=== PATIENT | male | born 1970 | race Hispanic/Latino ===

== ENCOUNTER 2017-03-27 08:13 | Emergency (ER) | payer MEDICAID ==
[2017-03-27 08:13] VITALS: BMI 33.4
[2017-03-27 08:28] VITALS: BP 129/90; PULSE 78; RESP 16; TEMP 98.1; O2SAT 95
--- NOTE | 2017-03-27 08:43 | ED PDOC ---
Arrival/HPI - General Chief Complaint: Upper Extremity Problem/Injury Time Seen by Provider: 03/27/17 08:16 Historian: Patient - History of Present Illness Narrative History of Present Illness (Text): 03/27/17 08:30 A 46 year old male, with no significant past medical history, presents to the emergency department complaining of finger problem for 3 weeks. Patient states while he was working, "his ring got caught on a screw". The ring split apart and was taken off immediately afterwards. Patient mentions superficial abrasion with some bleeding around ring at the time, bleeding controlled and he did not seek evaluation. He reports that he had some swelling immediately after incident distal to where his ring was, states that "I was briefly hung up on my ring" for "a few seconds". Also, patient mentions finger hurts when squeezed but is actively bend finger. Patient has no other complaints. Denies numbness or weakness. PMD: Dr. Barry Time/Duration: < week (3 weeks) Symptom Onset: Sudden Symptom Course: Unchanged Past Medical History - Provider Review Nursing Documentation Reviewed: Yes - Infectious Disease Hx of Infectious Diseases: None - Cardiac Hx Cardiac Disorders: No - Pulmonary Hx Respiratory Disorders: Yes Hx Asthma: Yes - Neurological Hx Neurological Disorder: No - HEENT Hx HEENT Disorder: Yes Other/Comment: nasalpharyngeal mass benign - Renal Hx Renal Disorder: No - Endocrine/Metabolic Hx Endocrine Disorders: No - Hematological/Oncological Hx Blood Disorders: No - Integumentary Hx Dermatological Disorder: No - Musculoskeletal/Rheumatological Hx Musculoskeletal Disorders: Yes Hx Arthritis: Yes - Gastrointestinal Hx Gastrointestinal Disorders: No - Genitourinary/Gynecological Hx Genitourinary Disorders: No - Psychiatric Hx Psychophysiologic Disorder: Yes Hx Anxiety: Yes Hx Substance Use: No - Surgical History Hx Musculoskeletal Surgery: Yes Other/Comment: acl , right arthroscopy for knee - Anesthesia Hx Anesthesia: Yes Hx Anesthesia Reactions: No Hx Malignant Hyperthermia: No - Suicidal Assessment Feels Threatened In Home Enviroment: No Family/Social History - Physician Review Nursing Documentation Reviewed: Yes Family/Social History: No Known Family HX Smoking Status: Heavy Smoker > 10 Cigarettes Daily Hx Alcohol Use: No Hx Substance Use: No Allergies/Home Meds Allergies/Adverse Reactions: Allergies shellfish derived Allergy (Verified 03/27/17 08:28) SWELLING Home Medications: Home Meds Medication Instructions Recorded Confirmed No Known Home Med 03/27/17 03/27/17 Review of Systems - Review of Systems Constitutional: absent: Fevers Cardiovascular: absent: Chest Pain Gastrointestinal: absent: Abdominal Pain Musculoskeletal: Joint Swelling (slightly swollen finger of the left hand (4th digit)) Skin: Other (scar on left hand (4th digit) where laceration was made 3 weeks ago ). absent: Rash, Laceration, Abscess Neurological: absent: Focal Weakness Physical Exam Vital Signs Reviewed: Yes Vital Signs Temp Pulse Resp BP Pulse Ox 03/27/17 08:28 98.1 F 78 16 129/90 95 Temperature: Afebrile Appearance: Positive for: Well-Appearing, Non-Toxic, Comfortable Pain Distress: None - Systems Exam Head: Present: Atraumatic Respiratory/Chest: No: Respiratory Distress Upper Extremity: Present: Normal ROM, NORMAL PULSES, Neurovascularly Intact, Other (patient with very mild soft tissue swelling noted at left fourth mcp joint with no fluctuance, no streaking, no erythema, no pus or drainage, no PIP or DIP pain, median/radial/ulnar motor and sensory function intact, distal pulses intact, no foreing body palpated, no wrist pain, full range of motion at mcp, pip, dip joint, no ligamentous laxity noted). No: Erythema Neurological: Present: Motor Func Grossly Intact, Normal Sensory Function Skin: Present: Warm Psychiatric: Present: Alert Medical Decision Making ED Course and Treatment: 03/27/17 08:36 Impression: 46 year old male with finger problem. Plan: -- Left Hand (4th Digit) X-Ray -- Reassess and disposition Prior Visits: Notes and results from previous visits were reviewed. Patient was last seen in the emergency department on 07/17/2016 for wound check and finger numbness; patient was discharged home. Patient was seen again on 07/26/2016 for suture removal from left 2nd finger; patient was discharged home. Progress Notes: Patient is noted to have no signs of cellulitis or neurovascular deficits on exam. Patient injury THREE weeks ago by my history. He has full range of motion with no significant laxity noted. Suspect soft tissue/ligamentous injury. Stressed follow-up with ortho, monitoring swelling and symptoms. As nv intact with no fracture or cellulitis, will discharge home with follow-up. 03/27/2017 08:58 Left Hand X-ray read and interpreted by me, which shows no fracture, no dislocation, no foreign body. - RAD Interpretation Radiology Orders: 03/27/17 08:35 HAND LEFT 4TH DIGIT (FINGER) [RAD] Stat - Scribe Statement The provider has reviewed the documentation as recorded by the Evangelista Hermosillo Provider Scribe Attestation: All medical record entries made by the Scribe were at my direction and personally dictated by me. I have reviewed the chart and agree that the record accurately reflects my personal performance of the history, physical exam, medical decision making, and the department course for this patient. I have also personally directed, reviewed, and agree with the discharge instructions and disposition. Disposition/Present on Arrival - Present on Arrival Any Indicators Present on Arrival: No History of DVT/PE: No History of Uncontrolled Diabetes: No Urinary Catheter: No History of Decub. Ulcer: No History Surgical Site Infection Following: None - Disposition Have Diagnosis and Disposition been Completed?: Yes Diagnosis: Finger sprain Disposition: HOME/ ROUTINE Disposition Time: 08:45 Patient Plan: Discharge Condition: GOOD Discharge Instructions (ExitCare): Finger Sprain (ED) Additional Instructions: For any redness, any pus or drainage, any numbness or weakness, any difficulty with movement, any persistent swelling, any worsening of swelling, any discoloration, get rechecked immediately. Follow-up with your primary care doctor or hand specialist as directed. Thank you for allowing the [facility] team to be part of your care today. If you had an X-Ray or CT scan: A Radiologist will review the ED reading if any change in treatment is needed we will contact you. Referrals: Ailin Barry MD [Primary Care Provider] - Follow up with primary [facility] [Outside] - Follow up with primary [facility] [Outside] - Follow up with primary Forms: [employer] (Kyrgyz)
--- NOTE | 2017-03-27 12:55 | RAD ---
PROCEDURE: Left ring finger radiographs. HISTORY: fourth finger pain COMPARISON: None. TECHNIQUE: PA radiograph of the left hand, as well as spot oblique and lateral images of left ring finger were obtained. FINDINGS: LEFT RING FINGER: Left ring finger normal, without fracture of focal lesion. Remainder of the left hand (as seen on the PA view) is grossly unremarkable. JOINTS: Normal. SOFT TISSUES: Normal. OTHER FINDINGS: None. IMPRESSION: No the evidence of acute displaced fracture nor dislocation.
== END 2017-03-27 09:04 | disposition home or self-care (01) ==
LOC: ED 08:13
DX: S63.615A Unspecified sprain of left ring finger, initial encounter (principal); W23.0XXA Caught, crushed, jammed, or pinched between moving objects, initial encounter; Y93.89 Activity, other specified; Y92.89 Other specified places as the place of occurrence of the external cause; Y99.8 Other external cause status

== ENCOUNTER 2017-03-28 10:56 | Emergency (ER) | payer MEDICAID ==
[2017-03-28 10:57] VITALS: BMI 33.4
[2017-03-28 11:59] VITALS: TEMP 99.2
--- NOTE | 2017-03-28 13:02 | ED PDOC ---
Arrival/HPI - General Chief Complaint: Upper Extremity Problem/Injury Time Seen by Provider: 03/28/17 12:18 Historian: Patient - History of Present Illness Narrative History of Present Illness (Text): 03/28/17 12:20 Lázaro Don is a 46 year old male who presents to the emergency department complaining of left hand injury after large wooden pieces landed on his left hand that was on the steering wheel while using a [employer] machine prior to arrival. Patient describes his pain as a throbbing pain that is 8/10, greatest to the fourth finger and fourth metacarpal on the left hand. Patient also complains of pain with flexion of his hand. He notes that he has not taken any medications for pain. Patient denies any numbness, weakness, tingling, or any other complaints at this time. Time/Duration: Prior to Arrival Symptom Onset: Sudden Symptom Course: Unchanged Severity Level: 8 Context: Work Past Medical History - Provider Review Nursing Documentation Reviewed: Yes - Infectious Disease Hx of Infectious Diseases: None - Cardiac Hx Cardiac Disorders: No - Pulmonary Hx Respiratory Disorders: Yes Hx Asthma: Yes - Neurological Hx Neurological Disorder: No - HEENT Hx HEENT Disorder: Yes Other/Comment: nasalpharyngeal mass benign - Renal Hx Renal Disorder: No - Endocrine/Metabolic Hx Endocrine Disorders: No - Hematological/Oncological Hx Blood Disorders: No - Integumentary Hx Dermatological Disorder: No - Musculoskeletal/Rheumatological Hx Musculoskeletal Disorders: Yes Hx Arthritis: Yes - Gastrointestinal Hx Gastrointestinal Disorders: No - Genitourinary/Gynecological Hx Genitourinary Disorders: No - Psychiatric Hx Psychophysiologic Disorder: Yes Hx Anxiety: Yes Hx Substance Use: No - Surgical History Hx Musculoskeletal Surgery: Yes Other/Comment: acl , right arthroscopy for knee - Anesthesia Hx Anesthesia: Yes Hx Anesthesia Reactions: No Hx Malignant Hyperthermia: No - Suicidal Assessment Feels Threatened In Home Enviroment: No Family/Social History - Physician Review Nursing Documentation Reviewed: Yes Family/Social History: No Known Family HX Smoking Status: Heavy Smoker > 10 Cigarettes Daily Hx Alcohol Use: No Hx Substance Use: No Allergies/Home Meds Allergies/Adverse Reactions: Allergies shellfish derived Allergy (Verified 03/28/17 11:59) SWELLING Review of Systems - Physician Review All systems were reviewed & negative as marked: Yes - Review of Systems Constitutional: absent: Fevers Eyes: absent: Vision Changes ENT: absent: Hearing Changes Respiratory: absent: SOB Cardiovascular: absent: Chest Pain Gastrointestinal: absent: Abdominal Pain Genitourinary Male: absent: Dysuria, Frequency Musculoskeletal: Other (left hand injury) Skin: absent: Rash Neurological: absent: Headache Endocrine: absent: Diaphoresis Hemo/Lymphatic: absent: Adenopathy Physical Exam Vital Signs Reviewed: Yes Vital Signs Temp Pulse Resp BP Pulse Ox 03/28/17 14:00 90 18 129/80 96 03/28/17 11:56 99.2 F 92 H 16 137/93 H 97 Temperature: Afebrile Blood Pressure: Hypertensive Pulse: Tachycardic Respiratory Rate: Normal Appearance: Positive for: Well-Appearing, Non-Toxic, Comfortable Pain Distress: None Mental Status: Positive for: Alert and Oriented X 3 - Systems Exam Head: Present: Atraumatic, Normocephalic Mouth: Present: Moist Mucous Membranes Neck: Present: Normal Range of Motion Respiratory/Chest: Present: Clear to Auscultation, Good Air Exchange. No: Respiratory Distress, Accessory Muscle Use Cardiovascular: Present: Regular Rate and Rhythm, Normal S1, S2. No: Murmurs Upper Extremity: Present: NORMAL PULSES (distal pulses intact), Tenderness ( Left Hand: +tenderness and swelling noted over dorsal aspect of 4th metacarpal head and 4th proximal phalanx), Neurovascularly Intact, Capillary Refill < 2s, Other (decreased flexion of 4th finger; no erythema). No: Normal ROM, Erythema , Temperature Abnormalties, Deformity Lower Extremity: Present: Normal Inspection. No: Edema Neurological: Present: GCS=15, Speech Normal Skin: Present: Warm, Dry, Normal Color. No: Rashes Psychiatric: Present: Alert, Oriented x 3 Medical Decision Making ED Course and Treatment: 03/28/17 13:56 Patient nontoxic well-appearing in no distress with stable vital signs X-rays of the left hand; no fracture toradol IM Patient placed in finger splint applied to left fourth finger. I discussed all results with patient advised to followup with the orthopedist for the next 2 days. Return if symptoms worsen persist or new symptoms develop Patient verbalizes understanding of discharge instructions and need for immediate followup. Impression: Hand pain, contusion finger Motrin every 6 hours as needed for pain Use finger splint Followup with the orthopedist within the next 2 days Followup with primary care physician within the next 2 days Return if any other concerning symptoms develop - RAD Interpretation Radiology Orders: 03/28/17 12:48 HAND LEFT 3 VIEWS ROUTINE [RAD] Stat - Medication Orders Current Medication Orders: Discontinued Medications Ketorolac Tromethamine (Toradol) 60 mg IM STAT STA Stop: 03/28/17 12:49 Last Admin: 03/28/17 13:13 Dose: 60 mg Re-Assess: NEAL Pain Assessment Document 03/28/17 14:13 IAIN (Rec: 03/28/17 14:26 IAIN [id number]) Pain Reassessment Is this a pain reassessment? No - Scribe Statement The provider has reviewed the documentation as recorded by the Danicaibchris Dunlap Provider Scribe Attestation: All medical record entries made by the Scribe were at my direction and personally dictated by me. I have reviewed the chart and agree that the record accurately reflects my personal performance of the history, physical exam, medical decision making, and the department course for this patient. I have also personally directed, reviewed, and agree with the discharge instructions and disposition. Disposition/Present on Arrival - Present on Arrival Any Indicators Present on Arrival: No History of DVT/PE: No History of Uncontrolled Diabetes: No Urinary Catheter: No History of Decub. Ulcer: No History Surgical Site Infection Following: None - Disposition Have Diagnosis and Disposition been Completed?: Yes Diagnosis: Hand pain, Contusion, finger Disposition: HOME/ ROUTINE Disposition Time: 13:58 Patient Plan: Discharge Condition: GOOD Discharge Instructions (ExitCare): Arthralgia (ED) Additional Instructions: Motrin every 6 hours as needed for pain Use finger splint Followup with the orthopedist within the next 2 days Followup with primary care physician within the next 2 days Return if any other concerning symptoms develop Prescriptions: Ibuprofen [Motrin] 600 mg PO Q6H PRN #20 tab PRN Reason: pain/fever reduction Referrals: Moi Gallagher MD [Staff Provider] - Follow up with primary Carrillo William MD [Staff Provider] - Follow up with primary Forms: [employer] (Canadian), WORK NOTE
--- NOTE | 2017-03-28 13:12 | RAD ---
PROCEDURE: Left Hand Radiographs. HISTORY: left hand injury attn; 4th finger COMPARISON: None. FINDINGS: BONES: Normal. No fracture. JOINTS: Normal. No osteoarthritic changes. SOFT TISSUES: Normal. OTHER FINDINGS: None. IMPRESSION: Normal left hand radiographs.
[2017-03-28 14:28] VITALS: BP 129/80; PULSE 90; RESP 18; O2SAT 96
== END 2017-03-28 14:29 | disposition home or self-care (01) ==
LOC: ED 10:56
DX: S60.042A Contusion of left ring finger without damage to nail, initial encounter (principal); W22.8XXA Striking against or struck by other objects, initial encounter; Y93.89 Activity, other specified; Y92.89 Other specified places as the place of occurrence of the external cause; M79.642 Pain in left hand
CPT/HCPCS: 29130; 73130; 96372; 99282; J1885

== ENCOUNTER 2018-02-13 18:14 | Emergency (ER) | payer MEDICAID ==
[2018-02-13 18:15] VITALS: BMI 33.4
--- NOTE | 2018-02-13 19:32 | ED PDOC ---
"Arrival/HPI - General Chief Complaint: Abdominal Pain Time Seen by Provider: 02/13/18 18:26 Historian: Patient - History of Present Illness Narrative History of Present Illness (Text): 02/13/18 19:05 47yo male with pmhx of hypertension who present with complaint of pelvic pain that radiates to his groin area x months. States he decided to come to ED today , because his wanted him to come. He denies nausea, vomiting, diarrhea, constipation, hematuria, dysuria, urinary frequency, fever, chills, back pain, any other complaint. Past Medical History - Provider Review Nursing Documentation Reviewed: Yes - Infectious Disease Hx of Infectious Diseases: None - Cardiac Hx Cardiac Disorders: Yes Hx Hypertension: Yes - Pulmonary Hx Respiratory Disorders: Yes Hx Asthma: Yes - Neurological Hx Neurological Disorder: No - HEENT Hx HEENT Disorder: Yes Other/Comment: nasalpharyngeal mass benign - Renal Hx Renal Disorder: No - Endocrine/Metabolic Hx Endocrine Disorders: No - Hematological/Oncological Hx Blood Disorders: No - Integumentary Hx Dermatological Disorder: No - Musculoskeletal/Rheumatological Hx Musculoskeletal Disorders: Yes Hx Arthritis: Yes - Gastrointestinal Hx Gastrointestinal Disorders: No - Genitourinary/Gynecological Hx Genitourinary Disorders: No - Psychiatric Hx Psychophysiologic Disorder: Yes Hx Anxiety: Yes Hx Substance Use: No - Surgical History Hx Musculoskeletal Surgery: Yes Other/Comment: acl , right arthroscopy for knee - Anesthesia Hx Anesthesia: Yes Hx Anesthesia Reactions: No Hx Malignant Hyperthermia: No - Suicidal Assessment Feels Threatened In Home Enviroment: No Family/Social History - Physician Review Nursing Documentation Reviewed: Yes Family/Social History: Unknown Family HX Smoking Status: Heavy Smoker > 10 Cigarettes Daily Hx Alcohol Use: No Hx Substance Use: No Allergies/Home Meds Allergies/Adverse Reactions: Allergies shellfish derived Allergy (Verified 03/28/17 11:59) SWELLING Review of Systems - Physician Review All systems were reviewed & negative as marked: Yes - Review of Systems Constitutional: Normal Eyes: Normal ENT: Normal Respiratory: Normal Cardiovascular: Normal Gastrointestinal: Abdominal Pain. absent: Constipation, Diarrhea, Nausea, Vomiting, Hematochezia, Hematemesis Genitourinary Male: Normal Musculoskeletal: Normal Skin: Normal Neurological: Normal Endocrine: Normal Hemo/Lymphatic: Normal Psychiatric: Normal Physical Exam Vital Signs Reviewed: Yes Vital Signs Temp Pulse Resp BP Pulse Ox 02/13/18 20:22 98.9 F 89 17 120/78 98 02/13/18 18:22 99.5 F 92 H 18 118/76 96 Temperature: Afebrile Blood Pressure: Normal Pulse: Regular Respiratory Rate: Normal Appearance: Positive for: Well-Appearing, Non-Toxic, Comfortable Pain Distress: None Mental Status: Positive for: Alert and Oriented X 3 - Systems Exam Head: Present: Atraumatic, Normocephalic Pupils: Present: PERRL Extroacular Muscles: Present: EOMI Conjunctiva: Present: Normal Mouth: Present: Moist Mucous Membranes Neck: Present: Normal Range of Motion Respiratory/Chest: Present: Clear to Auscultation, Good Air Exchange. No: Respiratory Distress, Accessory Muscle Use Cardiovascular: Present: Regular Rate and Rhythm, Normal S1, S2. No: Murmurs Abdomen: Present: Other (Soft). No: Tenderness, Distention, Peritoneal Signs, Rebound, Guarding, McBurney's Point Tender, Rovsing's Sign Present Back: Present: Normal Inspection Upper Extremity: Present: Normal Inspection. No: Cyanosis, Edema Lower Extremity: Present: Normal Inspection. No: Edema Neurological: Present: GCS=15, CN II-XII Intact, Speech Normal Skin: Present: Warm, Dry, Normal Color. No: Rashes Psychiatric: Present: Alert, Oriented x 3, Normal Insight, Normal Concentration Medical Decision Making ED Course and Treatment: 02/13/18 19:56 FINDINGS: Limitations: Limited evaluation due to lack of IV contrast. Lung bases: Unremarkable. No mass. No consolidation. ABDOMEN: Liver: Fatty infiltration of the liver. Gallbladder and bile ducts: Unremarkable. No calcified stones. No ductal dilation. Pancreas: Pancreas evaluation is limited. No ductal dilation. Spleen: Unremarkable. No splenomegaly. Adrenals: Unremarkable. No mass. Kidneys and ureters: Unremarkable. No obstructing stones. No hydronephrosis. Stomach and bowel: Bowel evaluation is limited due to lack of distention. No mucosal thickening. PELVIS: Appendix: No findings to suggest acute appendicitis. Bladder: The bladder is collapsed. There is wall thickening. Possible cystitis is not excluded. Consider ultrasound followup. DESMOND ABARCA | Preliminary Radiology Report DIRECTOR OF PERSONNEL (QA) DISCREPANCY? If there is a discrepancy between the preliminary and final interpretation, please notify [facility] via [email or web address]. If you do not have access to our QA portal, call our QA team at [phone] CONFIDENTIALITY STATEMENT This report is intended only for the use of the referring physician, and only in accordance with law, If you received this in error, call [phone] Page 2 of 2 Reproductive: Unremarkable as visualized. ABDOMEN and PELVIS: Intraperitoneal space: Unremarkable. No free air. No significant fluid collection. Bones/joints: No acute fracture. No dislocation. Soft tissues: Unremarkable. Vasculature: Minimal atherosclerotic changes of the aorta. No abdominal aortic aneurysm. Lymph nodes: Infiltration of fat with enlarged lymph nodes in the mesentery. The findings may be related to mesenteric adenitis. IMPRESSION: 1. The bladder is collapsed. There is wall thickening. Possible cystitis is not excluded. Consider ultrasound followup. 2. Infiltration of fat with enlarged lymph nodes in the mesentery. The findings may be related to mesenteric adenitis. 02/13/18 20:53 PT was in ED for stated history. She was not in any distress and physical exam was benign. UA was ordered, but the lab alleged that they never received it. PT finally agreed to give another urine, but refused to wait for the result. He was treated with Keflex base on the CT finding. He was referred to a Urologist. - Lab Interpretations Lab Results: Lab Results 02/13/18 20:10: Urine Color Light yellow, Urine Appearance Clear, Urine pH 6.0, Ur Specific [place] 1.020, Urine Protein Trace H, Urine Glucose (UA) Negative, Urine Ketones Negative, Urine Blood Negative, Urine Nitrate Negative, Urine Bilirubin Negative, Urine Urobilinogen 0.2, Ur Leukocyte Esterase Negative, Urine RBC Negative, Urine WBC 0 - 2, Ur Epithelial Cells None, Urine Bacteria Neg - RAD Interpretation Radiology Orders: 02/13/18 18:36 ABD & PELVIS W/O PO OR IV CONT [CT] Stat - Medication Orders Current Medication Orders: Discontinued Medications Cephalexin Monohydrate (Keflex) 500 mg PO STAT STA PRN Reason: Protocol Stop: 02/13/18 20:09 Last Admin: 02/13/18 20:20 Dose: 500 mg Ibuprofen (Motrin Tab) 600 mg PO STAT STA Stop: 02/13/18 20:10 Last Admin: 02/13/18 20:21 Dose: 600 mg Disposition/Present on Arrival - Present on Arrival Any Indicators Present on Arrival: No History of DVT/PE: No History of Uncontrolled Diabetes: No Urinary Catheter: No History of Decub. Ulcer: No History Surgical Site Infection Following: None - Disposition Have Diagnosis and Disposition been Completed?: Yes Diagnosis: Pelvic pain Disposition: HOME/ ROUTINE Disposition Time: 20:10 Patient Plan: Discharge Condition: STABLE Discharge Instructions (ExitCare): Acute Pelvic Pain (DC) Additional Instructions: Follow up with your Doctor/Urologist Return to ED for any new or worsening symptoms Prescriptions: Cephalexin [Keflex] 500 mg PO QID #28 capsule Ibuprofen [Motrin Tab] 600 mg PO Q6 #15 tab Referrals: Roberto Issa MD [Primary Care Provider] - Follow up with primary Houston Gunn MD [Staff Provider] - Follow up with primary Forms: [employer] (Nepali)"
[2018-02-13 20:19] LABS: URINE BILIRUBIN NEGATIVE (NEGATIVE); URINE BLOOD NEGATIVE (NEGATIVE); URINE GLUCOSE (UA) NEGATIVE (NEGATIVE); URINE LEUKOCYTE ESTERASE NEGATIVE Leu/uL (NEGATIVE); URINE PROTEIN TRACE mg/dL (<30 mg/dL); URINE UROBILINOGEN 0.2 E.U./dL (<1 E.U./dL)
[2018-02-13 20:20] LABS: URINE APPEARANCE CLEAR (CLEAR); URINE COLOR LIGHT YELLOW (YELLOW)
[2018-02-13 20:22] VITALS: BP 120/78; PULSE 89; RESP 17; TEMP 98.9; O2SAT 98
[2018-02-13 20:31] LABS: URINE BACTERIA NEG (NEG); URINE RBC NEGATIVE /hpf (0-2); URINE WBC 0 - 2 /hpf (0-6)
--- NOTE | 2018-02-14 08:29 | CT ---
Date of service: 02/13/2018 PROCEDURE: CT Abdomen and Pelvis without intravenous contrast HISTORY: pelvic pain COMPARISON: None. TECHNIQUE: Without contrast. Contrast dose: Radiation dose: Total exam DLP = 1099 mGy-cm. This CT exam was performed using one or more of the following dose reduction techniques: Automated exposure control, adjustment of the mA and/or kV according to patient size, and/or use of iterative reconstruction technique. FINDINGS: LOWER THORAX: Unremarkable. LIVER: Unremarkable. No gross lesion or ductal dilatation. GALLBLADDER AND BILE DUCTS: Unremarkable. PANCREAS: Unremarkable. No gross lesion or ductal dilatation. SPLEEN: Unremarkable. ADRENALS: Unremarkable. No mass. KIDNEYS AND URETERS: Unremarkable. No hydronephrosis. No solid mass. VASCULATURE: Unremarkable. No aortic aneurysm. BOWEL: Unremarkable. No obstruction. No gross mural thickening. APPENDIX: Unremarkable. Normal appendix. PERITONEUM: Unremarkable. No free fluid. No free air. LYMPH NODES: Mildly enlarged mesenteric lymph nodes are seen with infiltration of the fat planes at the root of the mesenteric. Findings are consistent with mesenteric adenitis BLADDER: There is lack of distension of the bladder. There is mural thickening. Possible cystitis REPRODUCTIVE: Unremarkable. BONES: No acute fracture. OTHER FINDINGS: The report concurs with the preliminary [facility] report IMPRESSION: Mildly enlarged mesenteric lymph nodes are seen with infiltration of the fat planes at the root of the mesenteric. Findings are consistent with mesenteric adenitis Thickening of the bladder wall which is most likely due to lack of distension
== END 2018-02-13 20:22 | disposition home or self-care (01) ==
LOC: ED 18:14
DX: R10.2 Pelvic and perineal pain (principal); I10 Essential (primary) hypertension; F17.210 Nicotine dependence, cigarettes, uncomplicated